=== PATIENT | male | born 1965 | race African-American/Black ===

== ENCOUNTER 2020-12-24 15:21 | Inpatient (IN) | payer SELFPAY ==
[2020-12-24] MEDS ORDERED: MORPHINE 4 MG/ML SYR ONE ×2 (17:18→18:48)
[2020-12-24] MEDS ORDERED: ONDANSETRON 4 MG/2 ML VIAL ONE ×2 (17:18→20:13)
[2020-12-24 17:20] LABS: Absolute Lymphocytes (CBC) 1.1 K/uL (0.7-4.9); Basophils % 0.9 % (0-1.3); Hematocrit 36.3 % (39.6-49.0); Lymphocytes % 10.4 % (15.3-44.8); MPV 8.8 fL (7.6-11.3)
[2020-12-24 17:22] LABS: Protime INR 1.36
[2020-12-24 17:40] LABS: Albumin 3.3 g/dL (3.4-5.0); Bilirubin Direct 0.2 mg/dL (0-0.2); Bilirubin Total 0.9 mg/dL (0.2-1.0); Magnesium 2.5 mg/dL (1.8-2.4); Potassium 3.6 mmol/L (3.5-5.1); Protein, Total 7.1 g/dL (6.4-8.2); Troponin (Emerg Dept Use Only) 0.06 ng/mL (0.0-0.045)
[2020-12-24] MEDS ORDERED: METOPROLOL TAR 25 MG TAB ONE (17:48)
[2020-12-24] MEDS ORDERED: METOPROLOL TARTRATE 5 MG/5 ML INJ IV ONE (18:22)
[2020-12-24] MEDS ORDERED: FUROSEMIDE 40 MG/4 ML VIAL ONE (18:37)
[2020-12-24] MEDS ORDERED: HYDRALAZINE HCL 20 MG/ML VIAL ONE ×2 (18:38→20:13)
--- NOTE | 2020-12-24 19:08 | RAD REPORT ---
EXAM DESCRIPTION: RAD - Chest Single View - 12/24/2020 6:33 pm CLINICAL HISTORY: DYSPNEA Chest pain. COMPARISON: Chest Single View dated 06/24/2017 FINDINGS: Portable technique limits examination quality. Moderate bilateral pulmonary opacities are noted which may represent pulmonary edema or pneumonia. Th e heart is mildly prominent size. Small bilateral pleural effusions suspected.
--- NOTE | 2020-12-24 19:08 | RAD REPORT ---
EXAM DESCRIPTION: CT - Stone Protocol - 12/24/2020 6:37 pm CLINICAL HISTORY: Flank pain. ABD PAIN COMPARISON: <Comparisons> TECHNIQUE: Axial images were obtained without oral or IV contrast. Lack of contrast limits solid org an and vascular assessment. The [id number] spans the entirety of the system partially obscuring uppermost abdomen and lung bases. Coronal reformatted images were obtained and reviewed. All CT scans are performed using dose optimization technique as appropriate and may include automated exposure control or mA/KV adjustment according to patient size. FINDINGS: Mild ground-glass lower lobe lung opacities are present. Small left and small to moderate right pleural effusion. Imaged portions of the liver and spleen show no suspicious findings on non-contrast imaging.32 mm libertad ign-appearing liver cyst. The pancreas and adrenal glands are normal. No pathologic lymphadenopathy i n the abdomen or pelvis. No urinary tract stones or obstructive uropathy. No bowel obstruction, free air, free fluid or abscess. Normal appendix noted.Moderate stool is presen t throughout the colon. Mild lumbar degenerative spondylosis with multilevel posterior disc bulging. IMPRESSION: No urinary tract stones or obstructive uropathy. No acute process identified.
--- NOTE | 2020-12-24 19:35 | EDPHYS ---
Physician Documentation [facility] Name: Houston Dunlap Age: 55 yrs Sex: Male : 1965 Arrival Date: 12/24/2020 Time: 15:24 Bed 23 Private MD: ED Physician Grey Orellana HPI: 12/24 19:23 This 55 yrs old Black Male presents to ER via Ambulatory with complaints of High Blood kb Pressure, Abdominal Pain. 19:23 The patient or guardian reports cough, that is intermittent, described as mild, with no kb sputum, difficulty breathing. Onset: The symptoms/episode began/occurred 2 week(s) ago. Severity of symptoms: At their worst the symptoms were moderate, in the emergency department the symptoms are unchanged. Modifying factors: The symptoms are alleviated by nothing, the symptoms are aggravated by nothing. Associated signs and symptoms: The patient has no apparent associated signs or symptoms. The patient has not experienced similar symptoms in the past. The patient has not recently seen a physician. Pt reports cough, shortness of breath and abd pain that started again on 12/11/20. States this is something that he has been dealing with intermittently since August. Reports swelling to ankles that started this morning. Pt states he is supposed to take lasix, but it makes him urinate too much so he doesn't like to take it like he is supposed to. . Historical: - Allergies: 16:07 No Known Allergies; jl7 - PMHx: 16:07 Hypertensive disorder; Congestive heart failure; jl7 - Immunization history:: Adult Immunizations up to date, Client reports having NOT received the Covid vaccine. - Social history:: Smoking status: Patient denies any tobacco usage or history of. ROS: 19:19 Constitutional: Negative for fever, chills, and weight loss. kb 19:19 Cardiovascular: Positive for edema. 19:19 Respiratory: Positive for cough, shortness of breath, Negative for dyspnea on exertion, hemoptysis, orthopnea, pleurisy, sputum production, wheezing. 19:19 Abdomen/GI: Positive for abdominal pain, Negative for nausea, vomiting, and diarrhea. 19:21 All other systems are negative. kb Exam: 19:06 ECG was reviewed by the Attending Physician. kb 19:21 Constitutional: This is a well developed, well nourished patient who is awake, alert, kb and in no acute distress. Head/Face: Normocephalic, atraumatic. ENT: Moist Mucous membranes Cardiovascular: Regular rate and rhythm with a normal S1 and S2. No gallops, murmurs, or rubs. No pulse deficits. Skin: Warm, dry with normal turgor. Normal color. MS/ Extremity: Pulses equal, no cyanosis. Neurovascular intact. Full, normal range of motion. Neuro: Awake and alert, GCS 15, oriented to person, place, time, and situation. Moves all extremities. Normal gait. Psych: Awake, alert, with orientation to person, place and time. Behavior, mood, and affect are within normal limits. 19:21 Cardiovascular: Edema: pedal edema, that is mild. 19:21 Respiratory: the patient does not display signs of respiratory distress, Respirations: normal, Breath sounds: decreased breath sounds, that are mild, are located in both bases. 19:21 Abdomen/GI: Inspection: abdomen appears normal, Bowel sounds: normal, in all quadrants, Palpation: soft, in all quadrants, moderate abdominal tenderness, in the left upper quadrant and left lower quadrant. Vital Signs: 16:05 BP 187 / 142; Pulse 91; Resp 25; Temp 97.5; Pulse Ox 98% ; Weight 90.26 kg; Height 6 jl7 ft. 1 in. (185.42 cm); Pain 10/10; 16:19 BP 186 / 132; Pulse 104; Resp 26; Pulse Ox 98% on R/A; ld1 16:45 BP 227 / 210; Pulse 138; Resp 24; Pulse Ox 99% on R/A; ld1 17:15 BP 185 / 158; Pulse 94; Resp 20; Pulse Ox 99% on R/A; ld1 17:45 BP 202 / 164; Pulse 97; Resp 21; Pulse Ox 100% ; ld1 18:31 BP 185 / 141; Pulse 80; Resp 19; Pulse Ox 100% ; ld1 19:45 BP 190 / 142; Pulse 86; Resp 18; Pulse Ox 100% on R/A; ld1 20:43 BP 187 / 132; Pulse 89; Resp 19; Pulse Ox 100% on R/A; ld1 16:05 Body Mass Index 26.25 (90.26 kg, 185.42 cm) jl7 MDM: 16:28 Patient medically screened. kb 17:19 Data reviewed: vital signs, nurses notes. Data interpreted: Pulse oximetry: on room air kb is 98 %. Interpretation: normal. ED course: Pt has COVID test result from 09/18/20 from [facility] that is negative. Copy placed in chart. 19:19 Counseling: I had a detailed discussion with the patient and/or guardian regarding: the kb historical points, exam findings, and any diagnostic results supporting the discharge/admit diagnosis, lab results, radiology results, the need for further work-up and treatment in the hospital. Physician consultation: Suraj MCCORMACK was contacted at 19:19, regarding admission, patient's condition, and will see patient in ED, shortly. 12/24 16:46 Order name: Basic Metabolic Panel; Complete Time: 17:42 kb 12/24 16:46 Order name: CBC with Diff; Complete Time: 17:25 kb 12/24 16:46 Order name: LFT's; Complete Time: 17:42 kb 12/24 16:46 Order name: Magnesium; Complete Time: 17:42 kb 12/24 16:46 Order name: NT PRO-BNP; Complete Time: 17:42 kb 12/24 16:46 Order name: PT-INR; Complete Time: 17:36 kb 12/24 16:46 Order name: Troponin (emerg Dept Use Only); Complete Time: 17:42 kb 12/24 16:46 Order name: XRAY Chest (1 view); Complete Time: 19:10 kb 12/24 17:22 Order name: COVID-19 : Document "Date of Symptom Onset" if Symptomatic. kb 12/24 19:55 Order name: Urine Creatinine [facility] 12/24 19:55 Order name: Urine Sodium Random [facility] 12/24 19:55 Order name: UR CREAT EDKS 12/24 20:29 Order name: SARS-COV-2 RT PCR; Complete Time: 20:30 EDKS 12/24 16:46 Order name: EKG; Complete Time: 16:46 kb 12/24 16:46 Order name: Cardiac monitoring; Complete Time: 16:51 kb 12/24 16:46 Order name: EKG - Nurse/Tech; Complete Time: 17:10 kb 12/24 18:06 Order name: CT Stone Protocol; Complete Time: 19:10 kb 12/24 20:03 Order name: CONS Physician Consult EDKS 12/24 16:46 Order name: IV Saline Lock; Complete Time: 17:10 kb 07 16:46 Order name: Labs collected and sent; Complete Time: 17:10 kb 12/24 16:46 Order name: O2 Per Protocol; Complete Time: 16:51 kb 12/24 16:46 Order name: O2 Sat Monitoring; Complete Time: 16:51 kb EC:06 Rate is 99 beats/min. Rhythm is regular. QRS [place] is Normal. QRS interval is normal at kb 94 msec. QT interval is normal at 374 msec. Administered Medications: 17:10 Drug: morphine 4 mg Route: IVP; Site: right antecubital; ld1 17:10 Drug: Zofran (Ondansetron) 4 mg Route: IVP; Site: right antecubital; ld1 17:30 Drug: Lopressor (metoprolol TARTRATE) 50 mg Route: PO; ld1 18:13 Drug: Lopressor (metoprolol) 5 mg Route: IVP; Site: right antecubital; ld1 18:29 Drug: Lasix (furosemide) 40 mg Route: IVP; Site: right antecubital; ld1 18:29 Drug: hydrALAZINE 10 mg Route: IVP; Site: right antecubital; ld1 19:21 CANCELLED (Physician Discretion): Lovenox (enoxaparin) 1 mg/kg Sub-Q once kb 19:30 CANCELLED (Other Intervention Used): hydrALAZINE 20 mg IVP once kb 20:08 Drug: hydrALAZINE 10 mg Route: IVP; Site: right antecubital; ld1 20:08 Drug: HEParin 5000 units Route: Sub-Q; Site: abdomen; ld1 20:09 Drug: Zofran (Ondansetron) 4 mg Route: IVP; Site: right antecubital; ld1 Disposition: 12/25 18:49 Co-signature as Attending Physician, Grey Orellana MD I agree with the assessment and gita plan of care. Disposition Summary: 12/24/20 19:35 Hospitalization Ordered Hospitalization Status: Inpatient Admission kb Provider: Antione Raya Location: Telemetry/MedSurg (Inpatient) kb Condition: Stable kb Problem: new kb Symptoms: are unchanged kb Bed/Room Type: Standard Room Assignment: 214(12/24/20 19:52) mw Diagnosis - Essential (primary) hypertension kb - Unspecified combined systolic (congestive) and diastolic (congestive) heart failure kb - Acute kidney failure, unspecified - acute on chronic kb - Unspecified atrial fibrillation - new onset kb Forms: - Medication Reconciliation Form kb - SBAR form kb Signatures: Dispatcher [employer] EDMS Margaret Underwood, JASON-Leilani GOMEZ-Shannon Wasserman RN RN Grey Ann MD MD cha Leal, Jahala, RN RN jl7 Flakita Bullard RN RN ld1 Corrections: (The following items were deleted from the chart) 12/24 19:21 17:23 CORONAVIRUS ordered. EDMS EDMS 19:10 Lovenox (enoxaparin) 1 mg/kg Sub-Q once ordered. kb kb 19:30 19:30 hydrALAZINE 20 mg IVP once ordered. kb kb 19:52 19:35 kb mw
--- NOTE | 2020-12-24 19:35 | ER ---
Nurse's Notes [facility] Name: Houston Dunlap Age: 55 yrs Sex: Male : 1965 Arrival Date: 12/24/2020 Time: 15:24 Bed 23 Private MD: Diagnosis: Essential (primary) hypertension;Unspecified combined systolic (congestive) and diastolic (congestive) heart failure;Acute kidney failure, unspecified-acute on chronic;Unspecified atrial fibrillation-new onset Presentation: 12/24 16:05 Chief complaint: Patient states: High BP, LLQ abd pain, N/V since last Thursday. [place] jl7 dx with bronchitis, negative COVID and flu. Coronavirus screen: Client denies travel out of the [place] in the last 14 days. At this time, the client does not indicate any symptoms associated with coronavirus-19. Ebola Screen: No symptoms or risks identified at this time. Initial Sepsis Screen: Does the patient meet any 2 criteria? No. Patient's initial sepsis screen is negative. Does the patient have a suspected source of infection? No. Patient's initial sepsis screen is negative. Risk Assessment: Do you want to hurt yourself or someone else? Patient reports no desire to harm self or others. Onset of symptoms was December 19, 2020. Care prior to arrival: None. 16:05 Method Of Arrival: Ambulatory [facility] 16:05 Acuity: FRANCOISE 2 jl7 Historical: - Allergies: 16:07 No Known Allergies; jl7 - PMHx: 16:07 Hypertensive disorder; Congestive heart failure; jl7 - Immunization history:: Adult Immunizations up to date, Client reports having NOT received the Covid vaccine. - Social history:: Smoking status: Patient denies any tobacco usage or history of. Screenin:43 Abuse screen: Denies threats or abuse. Denies injuries from another. Nutritional ld1 screening: No deficits noted. Tuberculosis screening: No symptoms or risk factors identified. Fall Risk None identified. Assessment: 16:23 General: Appears in no apparent distress. comfortable, Behavior is calm, cooperative, ld1 appropriate for age. Pain: Complains of pain in left lower quadrant Pain does not radiate. Pain currently is 9 out of 10 on a pain scale. Quality of pain is described as throbbing, Pain began three weeks ago. Is intermittent. Neuro: Level of Consciousness is awake, alert, obeys commands, Oriented to person, place, time, situation. Cardiovascular: Capillary refill < 3 seconds Patient's skin is warm and dry. Rhythm is regular. Respiratory: Reports cough that is non-productive, Airway is patent Respiratory effort is even, unlabored, Respiratory pattern is regular, symmetrical. GI: Abdomen is flat, non-distended, Bowel sounds present X 4 quads. Abd is soft Abdomen is tender to palpation in left lower quadrant. : No signs and/or symptoms were reported regarding the genitourinary system. EENT: No signs and/or symptoms were reported regarding the EENT system. Derm: No signs and/or symptoms reported regarding the dermatologic system. Musculoskeletal: No signs and/or symptoms reported regarding the musculoskeletal system. 17:45 Reassessment: Patient appears in no apparent distress at this time. Patient and/or ld1 family updated on plan of care and expected duration. Pain level reassessed. 18:31 Reassessment: Patient is alert, oriented x 3, equal unlabored respirations, skin ld1 warm/dry/pink. 18:32 Reassessment: Notified ERP of vital signs and ABD pain. See MAR for orders. ld1 19:30 Reassessment: Patient appears in no apparent distress at this time. Pt reporting ld1 nausea, notified ERP. See MAR for orders. 20:15 Reassessment: Patient appears in no apparent distress at this time. No changes from ld1 previously documented assessment. Patient is alert, oriented x 3, equal unlabored respirations, skin warm/dry/pink. 20:42 Reassessment: Patient appears in no apparent distress at this time. Patient is alert, ld1 oriented x 3, equal unlabored respirations, skin warm/dry/pink. Patient states feeling better. Vital Signs: 16:05 BP 187 / 142; Pulse 91; Resp 25; Temp 97.5; Pulse Ox 98% ; Weight 90.26 kg; Height 6 jl7 ft. 1 in. (185.42 cm); Pain 10/10; 16:19 BP 186 / 132; Pulse 104; Resp 26; Pulse Ox 98% on R/A; ld1 16:45 BP 227 / 210; Pulse 138; Resp 24; Pulse Ox 99% on R/A; ld1 17:15 BP 185 / 158; Pulse 94; Resp 20; Pulse Ox 99% on R/A; ld1 17:45 BP 202 / 164; Pulse 97; Resp 21; Pulse Ox 100% ; ld1 18:31 BP 185 / 141; Pulse 80; Resp 19; Pulse Ox 100% ; ld1 19:45 BP 190 / 142; Pulse 86; Resp 18; Pulse Ox 100% on R/A; ld1 20:43 BP 187 / 132; Pulse 89; Resp 19; Pulse Ox 100% on R/A; ld1 16:05 Body Mass Index 26.25 (90.26 kg, 185.42 cm) jl7 ED Course: 15:24 Patient arrived in ED. rg4 16:07 Triage completed. jl7 16:07 Arm band placed on right wrist. jl7 16:13 Flakita Bullard, NEDA is Primary Nurse. ld1 16:28 Margaret Underwood FNP-C is PHCP. kb 16:28 Grey Orellana MD is Attending Physician. kb 17:00 No provider procedures requiring assistance completed. Inserted saline lock: 20 gauge ld1 in right antecubital area, using aseptic technique. Blood collected. 18:33 XRAY Chest (1 view) In Process Unspecified. EDMS 18:37 CT Stone Protocol In Process Unspecified. EDMS 19:33 Antione Raya DO is Hospitalizing Provider. kb 20:44 Patient has correct armband on for positive identification. Placed in gown. Bed in low ld1 position. Call light in reach. Side rails up X2. gambling monitor on. Pulse ox on. NIBP on. 20:44 Patient admitted, IV remains in place. intact, bleeding controlled, No redness/swelling ld1 at site. Administered Medications: 17:10 Drug: morphine 4 mg Route: IVP; Site: right antecubital; ld1 17:10 Drug: Zofran (Ondansetron) 4 mg Route: IVP; Site: right antecubital; ld1 17:30 Drug: Lopressor (metoprolol TARTRATE) 50 mg Route: PO; ld1 18:13 Drug: Lopressor (metoprolol) 5 mg Route: IVP; Site: right antecubital; ld1 18:29 Drug: Lasix (furosemide) 40 mg Route: IVP; Site: right antecubital; ld1 18:29 Drug: hydrALAZINE 10 mg Route: IVP; Site: right antecubital; ld1 19:21 CANCELLED (Physician Discretion): Lovenox (enoxaparin) 1 mg/kg Sub-Q once kb 19:30 CANCELLED (Other Intervention Used): hydrALAZINE 20 mg IVP once kb 20:08 Drug: hydrALAZINE 10 mg Route: IVP; Site: right antecubital; ld1 20:08 Drug: HEParin 5000 units Route: Sub-Q; Site: abdomen; ld1 20:09 Drug: Zofran (Ondansetron) 4 mg Route: IVP; Site: right antecubital; ld1 Outcome: 19:35 Decision to Hospitalize by Provider. kb 20:44 Admitted to Med/surg accompanied by tech, via wheelchair, room 214, with chart, Report ld1 called to NEDA Felix 20:44 Condition: stable 20:45 Patient left the ED. ld1 Signatures: Dispatcher [employer] EDMS Margaret Underwood, JAVIER GOMEZ-Andria Fuentes rg4 Orlando De La Rosa, RN RN jl7 Flakita Bullard RN RN ld1 Corrections: (The following items were deleted from the chart) 16:08 16:05 BP 187 / 142; Pulse 91bpm; Resp 19bpm; Pulse Ox 98%; Temp 97.5F; 90.26 kg; Height jl7 6 ft. 1 in.; BMI: 26.2; Pain 10/10; jl7
[2020-12-24] MEDS ORDERED: HEPARIN 5000 UNIT/ML 1 ML VIAL ONE (20:13)
[2020-12-24] MEDS ORDERED: ALBUTEROL 2.5 MG/3 ML NEB SOL NEB PRN (20:51)
[2020-12-24] MEDS ORDERED: ONDANSETRON 4 MG/2 ML VIAL IV PRN (20:51)
[2020-12-24] MEDS ORDERED: ACETAMINOPHEN 500 MG TAB PO PRN (20:51)
[2020-12-24] MEDS ORDERED: HYDRALAZINE HCL 20 MG/ML VIAL IV PRN (20:51)
[2020-12-24] MEDS: AMLODIPINE 10 MG TAB PO SCH (21:34)
--- NOTE | 2020-12-24 21:37 | RAD REPORT ---
EXAM DESCRIPTION: US - Renal Ultrasound-Complete - 12/24/2020 9:27 pm CLINICAL HISTORY: renal failure Flank pain COMPARISON: Abdomen Pelvis Scan dated 06/26/2017 FINDINGS: Both kidneys are highly echogenic. The right kidney measures 9.6 x 4.4 x 3.3 cm. No hydronephrosis, focal mass or perinephric fluid. The left kidney measures 9.1 x 4.5 x 3.7 cm. No hydronephrosis, focal mass or perinephric fluid. The urinary bladder is incompletely distended without gross abnormality seen. IMPRESSION: Highly echogenic kidneys bilaterally compatible with medical renal disease.
[2020-12-24 22:00] LABS: Thyroid Stimulating Hormone 1.98 uIU/mL (0.360-3.740); Troponin I 0.04 ng/mL (0.0-0.045)
[2020-12-24 22:34] LABS: Urine Appearance CLEAR (Clear); Urine Bilirubin NEGATIVE (Negative); Urine Blood NEGATIVE (Negative); Urine Color YELLOW (Yellow); Urine Glucose NEGATIVE (Negative); Urine Protein NEGATIVE (Negative); Urine Specific Gravity <=1.005 (1.005-1.030); Urine Urobilinogen 0.2 mg/dL (0.2-1.0)
[2020-12-24 22:42] LABS: UR PROTEIN 23 mg/dL (<11.9)
[2020-12-24 22:48] LABS: UR CREAT < 13.0 mg/dL (20-370)
[2020-12-24 23:05] LABS: Urine Bacteria <20 /HPF (NONE SEEN); Urine RBC <5 /HPF (NONE SEEN)
--- NOTE | 2020-12-25 00:06 | P.HP ---
Certification for Inpatient Patient admitted to: Inpatient With expected LOS: >2 Midnights Patient will require the following post-hospital care: None Practitioner: I am a practitioner with admitting privileges, knowledge of patient current condition, hospital course, and medical plan of care. Services: Services provided to patient in accordance with Admission requirements found in Title 42 Section 412.3 of the Code of Federal Regulations Patient History Date of Service: 12/24/20 Primary Care Provider: Layne Reason for admission: Congestive heart failure History of Present Illness: This is a 55-year-old male with a history of hypertension and congestive heart failure that presented to the emergency room after having what he describes as an intermittent slowly progressive dry cough for past 2 weeks. Paitent stated that he started to get abodminal pain and vomiting today. Patient stated that he has also noticed increased swelling of the lower extremities and dyspnea with exertion. Patient stated that he has not been taking his medications like he is supposed to for the past several months. Patient was evaluated in the emergency room today and was found to have an elevated BNP of 24,000. Patient had slight elevation in troponin at 0.06. Patient's sodium was 138, potassium 3.6, chloride 104, bicarb 25, be you in 62, creatinine 4.27, glucose 107. This has been quite a change compared to previous creatinine in 2018 which was around 2. Patient has a white cell count of 10.7, hemoglobin of 11.3, hematocrit 36.3, platelets 214. Chest x-ray showed volume overload with cardiomegaly. CT the abdomen was unremarkable. Medicine was asked to consult on this case at that time for admission. It was further noted that patient had to have several treatments for his blood pressure while in the emergency room as his diastolic had ranged anywhere from 120-140. He was also found that patient had new onset atrial fibrillation on ECG. Allergies No Known Allergies Allergy (Verified 12/24/20 21:04) Home medications list reviewed: Yes Home Medications: Amlodipine [Norvasc*] 10 mg PO DAILY #30 tab 06/28/17 Furosemide [Lasix*] 40 mg PO BIDL #60 tab 06/28/17 Hydralazine [Apresoline*] 25 mg PO TID #90 tab 06/28/17 Isosorbide Mononitrate [Isosorbide Mononitrate ER] 30 mg PO DAILY #30 tab.er.24h 06/28/17 carvediloL [Coreg*] 12.5 mg PO BID 6AM 6PM #60 tab 06/28/17 cloNIDine HCL [Catapres*] 0.1 mg PO TID #90 tab 06/28/17 Benzonatate [Tessalon Perle*] 1 cap PO Q8HP PRN 12/24/20 levoFLOXacin [Levaquin*] 1 tab PO DAILY 12/24/20 traMADol HCL [Ultram*] 1 tab PO Q6HP PRN 12/24/20 - Past Medical/Surgical History Has patient received pneumonia vaccine in the past: No Diabetic: No -: Hypertension -: CHF -: NONE - Family History Father, Sister, Brother, and Mother -: Heart disease, Kidney disease - Social History Smoking Status: Never smoker Smoking therapy provided: No Alcohol use: Yes CD- Drugs: No Caffeine use: Yes Place of Residence: Home Review of Systems General: Unremarkable Eyes: Unremarkable ENT: Unremarkable Respiratory: Cough, Dry, SOB with Excertion Cardiovascular: Edema Gastrointestinal: Vomiting, Abdominal Pain Musculoskeletal: Unremarkable Integumentary: Unremarkable Neurological: Unremarkable Lymphatics: Unremarkable Physical Examination - Vital Signs Temperature: 97.3 F Blood Pressure: 175/124 Pulse: 77 Respirations: 19 Pulse Ox (%): 100 - Physical Exam General: Alert, In no apparent distress, Oriented x3 HEENT: PERRLA, Mucous membr. moist/pink, EOMI Neck: Supple, 2+ carotid pulse no bruit, JVD not distended, No Thyromegaly Respiratory: Clear to auscultation bilaterally Cardiovascular: Normal pulses, Abnormal S3, No gallops, No rubs, No murmurs, Edema (1+ lower extremities), Irregular heart rate/rhythm Capillary refill: <2 Seconds Gastrointestinal: Normal bowel sounds, Soft and benign, Non-distended, No as cites, No tenderness, No masses, No rebound, No guarding Musculoskeletal: No clubbing, No swelling, No contractures, No erythema, No tenderness, No warmth Integumentary: No rashes, No breakdown, No significant lesion, No tenderness/swelling, No erythema, No warmth, No cyanosis Neurological: Normal gait, Normal speech, Normal strength at 5/5 x4 extr, Normal tone, Sensation intact, Cranial nerves 3-12 intact, Normal affect Lymphatics: No axilla or inguinal lymphadenopathy - Studies Laboratory Data (last 24 hrs) 12/24/20 17:08: PT 15.7 H, INR 1.36 12/24/20 17:08: WBC 10.70, Hgb 11.3 L, Hct 36.3 L, Plt Count 264 12/24/20 17:08: Sodium 138, Potassium 3.6, BUN 62 H, Creatinine 4.27 H, Glucose 107 H, Magnesium 2.5 H, Total Bilirubin 0.9, AST 43 H, ALT 65, Alkaline Phosphatase 71 Assessment and Plan - Problems (Diagnosis) (1) Elevated troponin Current Visit: Yes Status: Acute Plan: Cardiology has been consulted. We will get an echo in the morning and will continue to monitor vital signs an EKG along with serial troponins. (2) Hypertensive urgency Current Visit: Yes Status: Acute Plan: Patient was put on IV hydralazine every 6 hr and will also get amlodipine and carvedilol to begin with. Will continue to monitor blood pressure will bring the blood pressure down slowly (3) Acute kidney injury Onset Date: 06/25/17 Current Visit: No Status: Acute Plan: Nephrology has been consulted. Patient will be on Lasix 80 mg twice a day. We will recheck a CBC and chemistry in the a.m. and will monitor patient's potassium. (4) HTN (hypertension) Current Visit: No Status: Chronic Qualifiers: Hypertension type: primary hypertension Qualified Code(s): I10 - Essential (primary) hypertension (5) Acute diastolic heart failure Current Visit: Yes Status: Acute Plan: Patient will be diuresed and cardiology has been consulted. Echo has been ordered in the morning as well. We will continue to diurese patient (6) Atrial fibrillation Current Visit: Yes Status: Acute Plan: Patient heparinized. We will monitor heart rate for rate control but at this time has not needed intervention. We did start patient back on his carvedilol 12.5 mg twice a day. Cardiology has been consulted. Discharge Plan: Home Plan to discharge in: 48 Hours - Advance Directives Does patient have a Living Will: No Does patient have a Durable POA for Healthcare: No - Code Status/Comfort Care Code Status Assessed: Yes Code Status: Full Code Critical Care: No Time Spent Managing Pts Care (In Minutes): 85
[2020-12-25] MEDS ORDERED: TRAMADOL HCL 50 MG TAB PO PRN (05:56)
--- NOTE | 2020-12-25 05:56 | P.PN ---
Subjective Date of Service: 12/25/20 Primary Care Provider: Layne Chief Complaint: Congestive heart failure Subjective: Other (He admits that he has been without medication for several months. He has no PCP. He has not seen Nephrology Dr. Tillman for some time. Patient willing to be more compliant) Physical Examination - Vital Signs Temperature: 98 F Blood Pressure: 174/113 Pulse: 79 Respirations: 18 Pulse Ox (%): 98 - Studies Laboratory Data (last 24 hrs) 12/24/20 17:08: PT 15.7 H, INR 1.36 12/24/20 17:08: WBC 10.70, Hgb 11.3 L, Hct 36.3 L, Plt Count 264 12/24/20 17:08: Sodium 138, Potassium 3.6, BUN 62 H, Creatinine 4.27 H, Glucose 107 H, Magnesium 2.5 H, Total Bilirubin 0.9, AST 43 H, ALT 65, Alkaline Phosphatase 71 Assessment & Plan Discharge Plan: Home Physician Review Additional Text: CXR: FINDINGS: Portable technique limits examination quality. Moderate bilateral pulmonary opacities are noted which may represent pulmonary edema or pneumonia. The heart is mildly prominent size. Small bilateral pleural effusions suspected. CT scan: FINDINGS: Mild ground-glass lower lobe lung opacities are present. Small left and small to moderate right pleural effusion. Imaged portions of the liver and spleen show no suspicious findings on non- contrast imaging.32 mm benign-appearing liver cyst. The pancreas and adrenal glands are normal. No pathologic lymphadenopathy in the abdomen or pelvis. No urinary tract stones or obstructive uropathy. No bowel obstruction, free air, free fluid or abscess. Normal appendix noted.Moderate stool is present throughout the colon. Mild lumbar degenerative spondylosis with multilevel posterior disc bulging. IMPRESSION: No urinary tract stones or obstructive uropathy. No acute process identified. Renal US: COMPARISON: Abdomen Pelvis Scan dated 06/26/2017 FINDINGS: Both kidneys are highly echogenic. The right kidney measures 9.6 x 4.4 x 3.3 cm. No hydronephrosis, focal mass or perinephric fluid. The left kidney measures 9.1 x 4.5 x 3.7 cm. No hydronephrosis, focal mass or perinephric fluid. The urinary bladder is incompletely distended without gross abnormality seen. IMPRESSION: Highly echogenic kidneys bilaterally compatible with medical renal disease. ECHO June 2017: MEASUREMENTS (cm) DIASTOLIC (NORMALS) SYSTOLIC (NORMALS) IVSd 0.9 (0.6-1.2) LA Diam 4.4 (1.9-4.0) LVEF 23% LVIDd 5.2 (3.5-5.7) LVIDs 4.6 (2.0-3.5) %FS 11% LVPWd 1.0 (0.6-1.2) Ao Diam 2.7 (2.0-3.7) 2 DIMENSIONAL ASSESSMENT: RIGHT ATRIUM: NORMAL LEFT ATRIUM: DILATED RIGHT VENTRICLE: NORMAL LEFT VENTRICLE: NORMAL SIZE TRICUSPID VALVE: NORMAL MITRAL VALVE: NORMAL PULMONIC VALVE: NORMAL AORTIC VALVE: NORMAL PERICARDIAL EFFUSION: NONE AORTIC ROOT: NORMAL LEFT VENTRICULAR WALL MOTION: SEVERE GLOBAL HYPOKINESIS. DOPPLER/COLOR FLOW: TRACE MITRAL AND TRICUSPID REGURGITATION. NORMAL RIGHT VENTRICULAR SYSTOLIC PRESSURE. COMMENTS: TRACE MITRAL AND TRICUSPID REGURGITATION. NORMAL RIGHT VENTRICULAR SYSTOLIC PRESSURE. SEVERE GLOBAL HYPOKINESIS. LEFT VENTRICULAR EJECTION FRACTION 20-25%. LEFT ATRIAL ENLARGEMENT. Physical Exam: General: Alert, In no apparent distress, Oriented x3 HEENT: PERRLA, Mucous membr. moist/pink, EOMI Neck: Supple, 2+ carotid pulse no bruit, JVD not distended, No Thyromegaly Respiratory: Clear anteriorly. Cardiovascular: Regular rate and rhythm no focal deficits. Capillary refill: <2 Seconds Gastrointestinal: Normal bowel sounds, Soft and benign, Non-distended, No ascites, No tenderness, No masses, No rebound, No guarding Musculoskeletal: No clubbing, No swelling, No contractures, No erythema, No tend erness, No warmth Integumentary: No rashes, No breakdown, No significant lesion, No tenderness/swelling, No erythema, No warmth, No cyanosis Neurological: Normal gait, Normal speech, Normal strength at 5/5 x4 extr, Normal tone, Sensation intact, Cranial nerves 3-12 intact, Normal affect Lymphatics: No axilla or inguinal lymphadenopathy Impression: Acute on chronic systolic CHF with noted bilateral small pleural effusions and prior echo June 2017 showing EF of 20 to 25% Acute on chronic renal disease stage IV Hypertensive urgency Atrial fibrillation noncompliance with medication and follow-up Plan: Acute on chronic systolic CHF with noted bilateral small pleural effusions and prior echo June 2017 showing EF of 20 to 25%: Patient has been noncompliant with medication and follow-up. Patient willing to be more compliant. Will obtain echocardiogram. Prior echo in June 2017 showed EF of 20 to 25%. Will decrease IV Lasix to 40 mg twice daily. Continue 1500 cc/day fluid restriction. Will need to get his blood pressures better controlled. Restart prior medications with adjustments made. Continue with Norvasc 10 mg daily, carvedilol 25 mg 1 pill twice daily, clonidine 0.1 mg 1 pill 3 times a day, hydralazine 25 mg 3 times a day and isosorbide 30 mg daily. Cardiology consulted for further recommendation. Will monitor closely. Nephrology consulted to further address his renal condition. Anticipate likely discharge as early as tomorrow. Atrial fibrillation: Patient in sinus rhythm. Continue at higher dose carvedilol 25 mg 1 pill twice daily. Will discuss with cardiology about anticoagulation therapy. Will need to consider his noncompliance in the past. Continue with aspirin 81 mg daily for now. Patient on heparin DVT prophylaxis. Hypertensive urgency: Medications restarted. Medications adjusted. Currently on Norvasc 10 mg daily, carvedilol 25 mg 1 pill twice daily, clonidine 0.1 mg 1 pill 3 times a day and hydralazine 25 mg 3 times a day. Will monitor and adjust medication. Acute on chronic renal disease stage IV: Continue diuresis. Continue to monitor closely. Renal ultrasound shows chronic renal disease. Nephrology consulted. Await further recommendation. Noncompliance with medication and follow-up: Compliance addressed with the patient in detail. Patient willing to be more compliant. Patient plans to take medication. Code status: Full code DVT prophylaxis: Heparin Advanced care planning-30 min: Patient plans to be discharged home at discharge Time Spent Managing Pts Care (In Minutes): 55
[2020-12-25 06:15] LABS: Absolute Lymphocytes (CBC) 1.5 K/uL (0.7-4.9); Basophils % 0.7 % (0-1.3); Hematocrit 33.8 % (39.6-49.0); Lymphocytes % 16.4 % (15.3-44.8); MPV 8.9 fL (7.6-11.3); RBC Red Blood Cell Count 4.48 M/uL (4.33-5.43)
[2020-12-25 06:27] LABS: Potassium 3.2 mmol/L (3.5-5.1)
[2020-12-25] MEDS ORDERED: HEPARIN 5000 UNIT/ML 1 ML VIAL SQ SCH (07:00)
[2020-12-25] MEDS ORDERED: carvediloL 12.5 MG TAB PO SCH ×2 (08:00)
[2020-12-25] MEDS ORDERED: cloNIDine HCL 0.1 MG TAB PO SCH (09:00)
[2020-12-25] MEDS ORDERED: HYDRALAZINE HCL 25 MG TABLET PO SCH (09:00)
[2020-12-25] MEDS ORDERED: FUROSEMIDE 40 MG/4 ML VIAL IV SCH ×3 (09:00→17:00)
[2020-12-25] MEDS: HEPARIN 5000 UNIT/ML 1 ML VIAL SQ SCH ×2 (09:20→20:17)
[2020-12-25] MEDS: AMLODIPINE 10 MG TAB PO SCH (09:21)
[2020-12-25] MEDS: ISOSORBIDE MONO SR 30 MG TAB PO SCH (09:22)
[2020-12-25] MEDS: ASPIRIN EC 81 MG TAB PO SCH (09:22)
[2020-12-25] MEDS ORDERED: POTASSIUM CL SA 10 MEQ TAB PO ONE (10:12)
--- NOTE | 2020-12-25 10:57 | CON ---
Date of Consultation: 12/25/2020 Reason For Consultation: Elevated BUN and creatinine, over volume, fluid management. History Of Present Illness: This is a pleasant 55-year-old black gentleman with significant past med ical history of hypertension, poorly compliant with medication and office visit, hyperlipidemia, platform software engineer xochitl kidney disease, normal-sized kidney, non-nephrotic range of proteinuria, last being evaluated in the office and in the hospital back in 2018. At that time, his creatinine was 2.6 with GFR of 31. A ccording to the patient, the patient had stopped his medication for blood pressure for the last few m onths and start using some herbal medication. According to him, it is black seed. The patient denie d taking any nonsteroidal. No IV contrast. The patient is not taking any diuresis. The patient sta rted complaining of shortness of breath. For that reason, he presented to the hospital. Upon arriva l to the hospital, the patient was found to have elevated BUN, creatinine. Creatinine was up above 4 with GFR down to 18. The patient did not have any hyperkalemia or acidosis. Reviewing the record f rom the previous admission. At that time, the patient had workup for secondary hypertension, include d cortisol which was within normal limit. We send for plasma renin activity and serum aldosterone, w hich was not obtained. At that time, workup for proteinuria including serum protein electrophoresis was negative and his serology was negative. The patient was sent on blood pressure medication. Also workup at that time showed echocardiogram with ejection fraction of 23%. The patient denied any ort hopnea. No chest pain. Upon arrival to the hospital, the patient's blood pressure was above 200 and BNP was above 24,000. Allergies: NO KNOWN DRUGS ALLERGY. Home Medications: According to the patient, he is not taking any blood pressure medication, supposed to be on amlodipine, hydralazine, isosorbide, carvedilol, clonidine, benzonatate, Levaquin. Past Medical History: 1.Hypertension. 2.Congestive heart failure. Ejection fraction back in 2018 of 23%. 3.Chronic kidney disease stage 3B, secondary to hypertension, nephrosclerosis, small size kidney. Family History: Positive for hypertension, CAD, and chronic kidney disease. Social History: Denies smoking. Denied drinking. Denied drugs abuse. Review of Systems: Head and Neck: No red eye. No ear pain. GI: No nausea. No vomiting. : No polyuria. No dysuria. No hematuria. Event Sales Assistant: Not applicable. Respiratory: He has shortness of breath. Cardiovascular: No orthopnea. He has leg swelling. Endocrine: No polydipsia. Skin: No rash. Neurologic: Generalized fatigue. Musculoskeletal: No joint pain. Physical Examination: Vital Signs: When I saw the patient, the patient lying in bed on room air. Vital Signs: Blood pressure 174/113, pulse of 79, afebrile. The patient had good urine output. Chest: Faint crackles, bilateral base. Heart: S1, S2. Systolic murmur. Abdomen: Soft, nontender. Extremities: Trace edema. Neurologic: Alert. No focality. Laboratory Data: WBC 9.4, H and H 11/33.8, platelet of 243. Upon admission, sodium 138, potassium 3 .6, bicarb 25, BUN 62, creatinine 4.2, GFR of 18, calcium 8.8. Today, sodium 140, potassium 3.2, bic arb 25, BUN 55, creatinine 3.7, GFR of 81, calcium 8.3. Previous BNP 15,000, upon admission 24,000. Reviewing the record, PTH 193, cortisol of 20. Serology was negative. Renal ultrasound on this adm ission 9.6/9.1, back in 2018 02/28 with renal cyst. Assessment And Plan: 1.Acute kidney injury on chronic kidney disease secondary to hypertension, nephrosclerosis, over vol ume, mostly progression of the disease/acute kidney injury secondary to uncontrolled blood pressure. Currently, the patient is still on the over volume side. I am going to continue the patient on diur esis and we will monitor the patient. I am going to be avoiding any DEEPA inhibitor or ARB given the a cute kidney injury. 2.Hypertension, not controlled, with acute kidney injury and over volume. The patient will need to repeat the secondary hypertension workup. I am going to go ahead and get aldosterone and plasma cortez n activity. We will follow up. I agree with adding amlodipine, carvedilol, and hydralazine, and we will follow up with Cardiology. I will go ahead and increase his Lasix to 80 mg b.i.d. 3.Hypokalemia secondary to diuresis, but it was even when he arrived to the hospital, possible [place] to rule out secondary hyperaldosteronism. I going to go ahead and replace potassium. We will f ollow up the patient. We will send for plasma renin activity and aldosterone. We will send for magn esium and TSH. 4.Chronic kidney disease with acute kidney injury as above. We will send for PTH, vitamin D, and we will follow up the patient. 5.Congestive heart failure with exacerbation as by Cardiology. Thank you, Dr. Raya, for allowing us to participate in the care of your patient. JONH Voice ID: [id number] Report ID: [id number]
--- NOTE | 2020-12-25 16:11 | EKG ---
Test Date: 2020-12-24 Test Time: 17:00:56 Foreign Languages Professor: TAQUERIA MEASUREMENT RESULTS: Intervals: Rate: 99 MN: QRSD: 94 QT: 374 QTc: 479 Velpen: P: MN: QRS: 59 T: 19 INTERPRETIVE STATEMENTS: Atrial fibrillation with premature ventricular or aberrantly conducted complexes Moderate voltage criteria for LVH, may be normal variant Prolonged QT Abnormal ECG Compared to ECG 06/24/2017 15:52:58 Ventricular premature complex(es) now present Prolonged QT interval now present Sinus tachycardia no longer present Early repolarization no longer present Electronically Signed On 12-25-20 16:08:40 CDT by Adrian Pink
[2020-12-25] MEDS: carvediloL 25 MG TAB PO SCH (17:38)
[2020-12-25] MEDS: HYDRALAZINE HCL 25 MG TABLET PO SCH (20:17)
--- NOTE | 2020-12-26 06:06 | P.DS ---
Admission Date: 12/24/20 Discharge Date: 12/26/20 Primary Care Provider: None; Nephrology- Disposition: ROUTINE DISCHARGE Discharge Condition: GOOD Reason for Admission: Congestive heart failure Consultations: Cardiology-Dr. Pink Nephrology-Dr. Tillman Procedures: COVID: Negative CXR: FINDINGS: Portable technique limits examination quality. Moderate bilateral pulmonary opacities are noted which may represent pulmonary edema or pneumonia. The heart is mildly prominent size. Small bilateral pleural effusions suspected. CT scan: FINDINGS: Mild ground-glass lower lobe lung opacities are present. Small left and small to moderate right pleural effusion. Imaged portions of the liver and spleen show no suspicious findings on non- contrast imaging.32 mm benign-appearing liver cyst. The pancreas and adrenal glands are normal. No pathologic lymphadenopathy in the abdomen or pelvis. No urinary tract stones or obstructive uropathy. No bowel obstruction, free air, free fluid or abscess. Normal appendix noted.Moderate stool is present throughout the colon. Mild lumbar degenerative spondylosis with multilevel posterior disc bulging. IMPRESSION: No urinary tract stones or obstructive uropathy. No acute process identified. Renal US: COMPARISON: Abdomen Pelvis Scan dated 06/26/2017 FINDINGS: Both kidneys are highly echogenic. The right kidney measures 9.6 x 4.4 x 3.3 cm. No hydronephrosis, focal mass or perinephric fluid. The left kidney measures 9.1 x 4.5 x 3.7 cm. No hydronephrosis, focal mass or perinephric fluid. The urinary bladder is incompletely distended without gross abnormality seen. IMPRESSION: Highly echogenic kidneys bilaterally compatible with medical renal disease. ECHO June 2017: MEASUREMENTS (cm) DIASTOLIC (NORMALS) SYSTOLIC (NORMALS) IVSd 0.9 (0.6-1.2) LA Diam 4.4 (1.9-4.0) LVEF 23% LVIDd 5.2 (3.5-5.7) LVIDs 4.6 (2.0-3.5) %FS 11% LVPWd 1.0 (0.6-1.2) Ao Diam 2.7 (2.0-3.7) 2 DIMENSIONAL ASSESSMENT: RIGHT ATRIUM: NORMAL LEFT ATRIUM: DILATED RIGHT VENTRICLE: NORMAL LEFT VENTRICLE: NORMAL SIZE TRICUSPID VALVE: NORMAL MITRAL VALVE: NORMAL PULMONIC VALVE: NORMAL AORTIC VALVE: NORMAL PERICARDIAL EFFUSION: NONE AORTIC ROOT: NORMAL LEFT VENTRICULAR WALL MOTION: SEVERE GLOBAL HYPOKINESIS. DOPPLER/COLOR FLOW: TRACE MITRAL AND TRICUSPID REGURGITATION. NORMAL RIGHT VENTRICULAR SYSTOLIC PRESSURE. COMMENTS: TRACE MITRAL AND TRICUSPID REGURGITATION. NORMAL RIGHT VENTRICULAR SYSTOLIC PRESSURE. SEVERE GLOBAL HYPOKINESIS. LEFT VENTRICULAR EJECTION FRACTION 20-25%. LEFT ATRIAL ENLARGEMENT. ECHO, Current: MEASUREMENTS (cm) DIASTOLIC (NORMALS) SYSTOLIC (NORMALS) IVSd 1.3 (0.6-1.2) LA Diam 4.0 (1.9-4.0) LVEF 35-40% LVIDd 4.9 (3.5-5.7) LVIDs 4.2 (2.0-3.5) %FS 16% LVPWd 1.3 (0.6-1.2) Ao Diam 2.5 (2.0-3.7) 2 DIMENSIONAL ASSESSMENT: RIGHT ATRIUM: NORMAL LEFT ATRIUM: NORMAL RIGHT VENTRICLE: NORMAL LEFT VENTRICLE: LEFT VENTRICULAR HYPERTROPHY TRICUSPID VALVE: NORMAL MITRAL VALVE: NORMAL PULMONIC VALVE: NORMAL AORTIC VALVE: NORMAL PERICARDIAL EFFUSION: NONE AORTIC ROOT: NORMAL LEFT VENTRICULAR WALL MOTION: MODERATE GLOBAL HYPOKINESIS. DOPPLER/COLOR FLOW: MILD MITRAL AND TRICUSPID REGURGITATION NORMAL RIGHT VENTRICULAR SYSTOLIC PRESSURE. COMMENTS: MODERATE GLOBAL HYPOKINESIS EJECTION FRACTION 35-40%. MILD MITRAL AND TRICUSPID REGURGITATION NORMAL RIGHT VENTRICULAR SYSTOLIC PRESSURE Follow up CXR: COMPARISON: None. TECHNIQUE: PA and lateral views of the chest were obtained. FINDINGS: Improved aeration of the lungs bilaterally. No focal consolidation or edema is identified. The heart size is less prominent. No fractures are identified. IMPRESSION: Improved aeration of the lungs likely representing resolving edema. Medical problem list: Acute on chronic systolic CHF with noted bilateral small pleural effusions and prior echo June 2017 showing EF of 20 to 25% now ejection fraction around 35 to 40% Acute on chronic renal disease stage IV Hypertensive urgency Atrial fibrillation, now NSR likely paroxysmal Noncompliance with medication and follow-up Brief History of Present Illness: 85-year-old -[place] male with a history of hypertension and congestive heart failure that presented to the emergency room after having what he describes as an intermittent slowly progressive dry cough for past 2 weeks. Patient also reported some shortness of breath. Patient stated that he has not been taking his medications like he is supposed to for the past several months. Patient was evaluated in the emergency room today and was found to have an elevated BNP of 24,000. Patient had slight elevation in troponin at 0.06. Patient's sodium was 138, potassium 3.6, chloride 104, bicarb 25, be you in 62, creatinine 4.27, glucose 107. This has been quite a change compared to previous creatinine in 2018 which was around 2. Patient has a white cell count of 10.7, h emoglobin of 11.3, hematocrit 36.3, platelets 214. Chest x-ray showed volume overload with cardiomegaly. CT the abdomen was unremarkable. Patient was admitted for further evaluation and treatment. Hospital Course: Patient presented with shortness of breath secondary to acute on chronic systolic CHF with bilateral small pleural effusions noted. Patient with prior echo done June 2017 showing ejection fraction around 20 to 25%. Patient was admitted for treatment. Patient also presented with hypertensive urgency and episode of atrial fibrillation which resolved with medication. Patient has been noncompliant with medication and follow-up. Patient was admitted for treatment. Patient was seen and evaluated by nephrology and cardiology. Repeat echocardiogram shows improvement of ejection fraction to 35 to 40 %. Patient was given IV Lasix with improvement. Chest x-ray shows improvement. Patient not requiring any oxygen. Patient back to normal sinus rhythm. Cardiology recommends no chronic anticoagulation therapy. A. fib likely paroxysmal. Cardiology recommends no further cardiac intervention at this time. Blood pressure medications were adjusted for better control. At discharge patient will continue with the 1500 cc/day fluid restriction and low-salt diet. He is to monitor his weight daily. If his weight increases by more than 5 pounds he is to contact his PCP for further adjustment in medication. At discharge patient will continue with Lasix 40 mg 1 pill twice daily. The patient will also continue with Imdur 30 mg daily and aspirin 81 mg daily. Patient is not a candidate for Entresto at this time as recommended by cardiology. Patient will need to follow-up with cardiology in 1 to 2 weeks to follow-up hospitalization. Patient plans to establish care with a local PCP to monitor his chronic conditions. For his hypertension, medications were adjusted for better control. Blood pressure is now improved. At discharge, the patient will continue with Norvasc 10 mg daily, carvedilol 25 mg 1 pill twice daily, clonidine 0.1 mg 1 pill twice daily, and hydralazine 25 mg 1 pill twice daily. Recommend to monitor his blood pressures daily. Recommend to maintain blood pressure less than 130/80. If his blood pressures remain elevated greater than 140/90 he is to contact his PCP for further recommendation. Recommend follow-up with cardiology in 1 to 2 weeks to follow-up his hospitalization. Patient plans to establish care with a local physician to continue his medical regimen and close monitoring of his condition. Education on CHF, hypertension provided. Patient with acute on chronic renal disease stage IV. Patient was seen by nephrology. Recommend no further use of nonsteroidal anti-inflammatories. Future medications would to be renally dosed. Renal function overall stable. At discharge patient will follow up with nephrology in 1 to 2 weeks. Recommend to recheck labBMP in 1 to 2 weeks to monitor his progress. Patient with history of noncompliance with his medication and follow-up. Patient plans to be more compliant. Patient will establish care with a local PCP to continue his care. Vital Signs/Physical Exam: Temp Pulse Resp BP Pulse Ox 98.1 F 79 18 136/90 98 12/26/20 04:00 12/26/20 04:00 12/26/20 04:00 12/26/20 04:00 12/26/20 04:00 General: Alert, In no apparent distress, Oriented x3, Cooperative HEENT: Atraumatic Neck: Supple Respiratory: Clear to auscultation bilaterally, Normal air movement Cardiovascular: Normal pulses, Regular rate/rhythm Gastrointestinal: Normal bowel sounds, No tenderness, No masses, No rebound, No guarding Musculoskeletal: No tenderness Integumentary: No tenderness/swelling Neurological: Normal speech, Normal strength at 5/5 x4 extr, Normal tone, Normal affect Laboratory Data at Discharge: WBC 9.40 K/uL (4.3-10.9) 12/25/20 05:45 Hgb 11.0 g/dL (13.6-17.9) L 12/25/20 05:45 Hct 33.8 % (39.6-49.0) L 12/25/20 05:45 Plt Count 243 K/uL (152-406) 12/25/20 05:45 PT 15.7 SECONDS (9.5-12.5) H 12/24/20 17:08 INR 1.36 12/24/20 17:08 Sodium 140 mmol/L (136-145) 12/25/20 05:45 Potassium 3.2 mmol/L (3.5-5.1) L 12/25/20 05:45 BUN 55 mg/dL (7-18) H 12/25/20 05:45 Creatinine 3.73 mg/dL (0.55-1.3) H 12/25/20 05:45 Glucose 98 mg/dL (74-106) 12/25/20 05:45 Magnesium 2.5 mg/dL (1.8-2.4) H 12/24/20 17:08 Total Bilirubin 0.9 mg/dL (0.2-1.0) 12/24/20 17:08 AST 43 U/L (15-37) H 12/24/20 17:08 ALT 65 U/L (12-78) 12/24/20 17:08 Alkaline Phosphatase 71 U/L (45-117) 12/24/20 17:08 Troponin I 0.05 ng/mL (0.0-0.045) H 12/25/20 00:51 Home Medications: traMADol HCL [Ultram*] 1 tab PO Q6HP PRN 12/24/20 Amlodipine [Norvasc*] 10 mg PO DAILY #30 tab 12/26/20 Aspirin [Aspirin EC 81 MG] 81 mg PO DAILY #90 tablet. 12/26/20 Furosemide [Lasix*] 40 mg PO BIDL #60 tab 12/26/20 Hydralazine [Apresoline*] 25 mg PO BID #60 tab 12/26/20 Isosorbide Mononitrate [Isosorbide Mononitrate ER] 30 mg PO DAILY #30 tab.er.24h 12/26/20 carvediloL [Coreg*] 25 mg PO BIDWM #60 tab 12/26/20 cloNIDine HCL [Catapres*] 0.1 mg PO BID #60 tab 12/26/20 New Medications: Hydralazine [Apresoline*] 25 mg PO BID #60 tab Aspirin [Aspirin EC 81 MG] 81 mg PO DAILY #90 tablet. cloNIDine HCL [Catapres*] 0.1 mg PO BID #60 tab carvediloL [Coreg*] 25 mg PO BIDWM #60 tab Isosorbide Mononitrate [Isosorbide Mononitrate ER] 30 mg PO DAILY #30 tab.er.24h Furosemide [Lasix*] 40 mg PO BIDL #60 tab Amlodipine [Norvasc*] 10 mg PO DAILY #30 tab Physician Discharge Instructions: Patient presented with shortness of breath secondary to acute on chronic systolic CHF with bilateral small pleural effusions noted. Patient with prior echo done June 2017 showing ejection fraction around 20 to 25%. Patient was admitted for treatment. Patient also presented with hypertensive urgency and episode of atrial fibrillation which resolved with medication. Patient has been noncompliant with medication and follow-up. Patient was admitted for treatment. Patient was seen and evaluated by nephrology and cardiology. Repeat echocardiogram shows improvement of ejection fraction to 35 to 40 %. Patient was given IV Lasix with improvement. Chest x-ray shows improvement. Patient not requiring any oxygen. Patient back to normal sinus rhythm. Cardiology recommends no chronic anticoagulation therapy. A. fib likely paroxysmal. Cardiology recommends no further cardiac intervention at this time. Blood pressure medications were adjusted for better control. At discharge patient will continue with the 1500 cc/day fluid restriction and low-salt diet. He is to monitor his weight daily. If his weight increases by more than 5 pounds he is to contact his PCP for further adjustment in medication. At discharge patient will continue with Lasix 40 mg 1 pill twice daily. The patient will also continue with Imdur 30 mg daily and aspirin 81 mg daily. Patient is not a candidate for Entresto at this time as recommended by cardiology. Patient will need to follow-up with cardiology in 1 to 2 weeks to follow-up hospitalization. Patient plans to establish care with a local PCP to monitor his chronic conditions. For his hypertension, medications were adjusted for better control. Blood pressure is now improved. At discharge, the patient will continue with Norvasc 10 mg daily, carvedilol 25 mg 1 pill twice daily, clonidine 0.1 mg 1 pill twice daily, and hydralazine 25 mg 1 pill twice daily. Recommend to monitor his blood pressures daily. Recommend to maintain blood pressure less than 130/80. If his blood pressures remain elevated greater than 140/90 he is to contact his PCP for further recommendation. Recommend follow-up with cardiology in 1 to 2 weeks to follow-up his hospitalization. Patient plans to establish care with a local physician to continue his medical regimen and close monitoring of his condition. Education on CHF, hypertension provided. Patient with acute on chronic renal disease stage IV. Patient was seen by nephrology. Recommend no further use of nonsteroidal anti-inflammatories. Future medications would to be renally dosed. Renal function overall stable. At discharge patient will follow up with nephrology in 1 to 2 weeks. Recommend to recheck labBMP in 1 to 2 weeks to monitor his progress. Patient with history of noncompliance with his medication and follow-up. Patient plans to be more compliant. Patient will establish care with a local PCP to continue his care. Diet: AHA Activity: Ad semaj Followup: NONE,NONE [Primary Care Provider] - Time spent managing pt's care (in minutes): 55
[2020-12-26 06:46] LABS: Albumin 3.3 g/dL (3.4-5.0); Magnesium 2.3 mg/dL (1.8-2.4); Phosphorus 4.1 mg/dL (2.5-4.9); Potassium 3.2 mmol/L (3.5-5.1); Thyroid Stimulating Hormone 1.01 uIU/mL (0.360-3.740); Uric Acid 9.9 mg/dL (3.5-7.2)
--- NOTE | 2020-12-26 07:55 | P.PN ---
Subjective Date of Service: 12/26/20 Primary Care Provider: None; Nephrology- Chief Complaint: Congestive heart failure Subjective: Other (No c/o SOB) Physical Examination - Vital Signs Temperature: 98.1 F Blood Pressure: 136/90 Pulse: 79 Respirations: 18 Pulse Ox (%): 98 - Physical Exam General: Alert, In no apparent distress HEENT: Atraumatic, Normocephalic Neck: Supple Respiratory: Clear to auscultation bilaterally Cardiovascular: No rubs, No murmurs Gastrointestinal: Soft and benign Musculoskeletal: No swelling Integumentary: No warmth Neurological: Normal speech, Normal tone Lymphatics: No axilla or inguinal lymphadenopathy Urinary: Other (No santillan) External genitalia: Deferred Rectal: Deferred Assessment And Plan - Plan # HARISH 2/2 uncontrolled Htn SCr trending up, lasix held today Advised on liberal po fluid intake. Do not restrict po fluid unless he develops hyponatremia Avoid NSAID, ACEI ARB Monitor renal panel # CKD presumed to be 2/2 hypertensive nephrosclerosis F/u iPTH, 25OHD Monitor renal panel # Acute on chronic CHF Mngt per Cardiology # Htn BP overall still above goal F/u PA/PRA Hydalazine increased further to 75 mg po bid Other BP meds continue same dose He has hypokalemia & alkalosis, looks like these are chronic issues. 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 Await PA/PRA result. May also benefit from jemima po bid trial then back off on other po BP meds for ? Conn's, even though his GFR is only 19-20. # Hypokalemia KCl repletion ordered today # Dispo Anticipate dc tomorrow
[2020-12-26] MEDS: carvediloL 25 MG TAB PO SCH ×2 (08:03→16:54)
[2020-12-26] MEDS: HYDRALAZINE HCL 25 MG TABLET PO SCH ×2 (08:03→20:35)
[2020-12-26] MEDS: HEPARIN 5000 UNIT/ML 1 ML VIAL SQ SCH ×2 (08:03→20:36)
[2020-12-26] MEDS: ISOSORBIDE MONO SR 30 MG TAB PO SCH (08:03)
[2020-12-26] MEDS: ASPIRIN EC 81 MG TAB PO SCH (08:03)
--- NOTE | 2020-12-26 08:03 | RAD REPORT ---
EXAM DESCRIPTION: RAD - Chest Pa And Lat (2 Views) - 12/26/2020 5:40 am CLINICAL HISTORY: 12/24/2020 COMPARISON: None. TECHNIQUE: PA and lateral views of the chest were obtained. FINDINGS: Improved aeration of the lungs bilaterally. No focal consolidation or edema is identified. The heart size is less prominent. No fractures are identified. IMPRESSION: Improved aeration of the lungs likely representing resolving edema.
[2020-12-26] MEDS: AMLODIPINE 10 MG TAB PO SCH (08:05)
--- NOTE | 2020-12-26 08:23 | ECHO ---
HEIGHT: 6 ft 1 in WEIGHT: 189 lb 0 oz DATE OF STUDY: 12/25/[address]: Nas Cuevas 2-DIMENSIONAL: YES M.MODE: YES DOPPLER: YES COLOR FLOW: YES TDS: NO PORTABLE: NO DEFINITY: NO BUBBLE STUDY: NO DIAGNOSIS: HEART FAILURE CARDIAC HISTORY: CATHERIZATION: SURGERY: PROSTHETIC VALVE: PACEMAKER: MEASUREMENTS (cm) DIASTOLIC (NORMALS) SYSTOLIC (NORMALS) IVSd 1.3 (0.6-1.2) LA Diam 4.0 (1.9-4.0) LVEF 35-40% LVIDd 4.9 (3.5-5.7) LVIDs 4.2 (2.0-3.5) %FS 16% LVPWd 1.3 (0.6-1.2) Ao Diam 2.5 (2.0-3.7) 2 DIMENSIONAL ASSESSMENT: RIGHT ATRIUM: NORMAL LEFT ATRIUM: NORMAL RIGHT VENTRICLE: NORMAL LEFT VENTRICLE: LEFT VENTRICULAR HYPERTROPHY TRICUSPID VALVE: NORMAL MITRAL VALVE: NORMAL PULMONIC VALVE: NORMAL AORTIC VALVE: NORMAL PERICARDIAL EFFUSION: NONE AORTIC ROOT: NORMAL LEFT VENTRICULAR WALL MOTION: MODERATE GLOBAL HYPOKINESIS. DOPPLER/COLOR FLOW: MILD MITRAL AND TRICUSPID REGURGITATION - NORMAL RIGHT VENTRICULAR SYSTOLIC PRESSURE. COMMENTS: MODERATE GLOBAL HYPOKINESIS - EJECTION FRACTION 35-40%. MILD MITRAL AND TRICUSPID REGURGITATION - NORMAL RIGHT VENTRICULAR SYSTOLIC PRESSURE. TECHNOLOGIST: CHIN CAAL
[2020-12-26] MEDS ORDERED: FUROSEMIDE 40 MG TABLET PO SCH (09:00)
[2020-12-26] MEDS ORDERED: cloNIDine HCL 0.1 MG TAB PO SCH (09:42)
[2020-12-26] MEDS ORDERED: POTASSIUM CL SA 10 MEQ TAB PO ONE (13:29)
[2020-12-26 21:50] VITALS: BMI 24.9
--- NOTE | 2020-12-27 04:16 | CON ---
Date of Consultation: 12/25/2020 The patient was admitted on 12/24/[address] Raya service. I saw the patient on 12/25/2020. Reason For Consultation: Congestive heart failure. History Of Present Illness: Mr. Dunlap is a 55-year-old black male with history of hypertension, cecilia estive heart failure. He came in with hypertension, mid-epigastric pain, dyspnea on exertion. No na usea, vomiting, diaphoresis, PND, orthopnea, pedal edema, palpitations, or syncope. Has had symptoms dating back to August. He also reported some pedal edema. He is supposed to be on Lasix at home. Naa wilson has been rather very compliant with his medication. He came in with a blood pressure of 187/142, o xygen saturation was 98%. He was breathing at 25 times a minute. He was afebrile. He denied any fe destinee or chills or cough. He denied any diarrhea. Past Medical History: As stated above. He is alert. Allergies: NONE. Review of Systems: Negative. Social History: Negative. Family History: Noncontributory. Medications: At home are supposed to be Norvasc 10 mg daily, aspirin, Lasix 40 mg b.i.d., hydralazin e, Imdur, carvedilol 25 mg b.i.d., and tramadol. Physical Examination: Vital signs: He weighed 191 pounds. Blood pressure initially was 174/113 and when I saw him was 125 /88. Other vital signs were stable. He was in sinus rhythm with PACs. HEENT: Negative. Neck: Supple with no bruit. Chest: Reveals some rales both bases. Cardiac: Revealed a regular rhythm and rate with an S4 gallops. Abdomen: Benign. Extremities: Revealed no clubbing, cyanosis, but he had 2+ edema to the knee. Skin: Dry and intact. Pulses are present distally bilaterally. Neurologic: He was nonfocal. Diagnostic Data: Showed a creatinine of 3.73. His potassium was 3.2. His troponin was 0.05. His B [employer] was 15,431. Chest x-ray showed pulmonary edema and small bilateral pleural effusion. EKG showed atrial fibrillation with ventricular response of 99. Impression And Plan: 1.Acute on chronic systolic congestive heart failure. 2.Acute renal failure. 3.Hypertension, very poorly controlled. 4.Atrial fibrillation may be new onset. The patient needs to be on anticoagulation. Nephrology has been consulted. He needs to have a 2D echocardiogram. We need to diurese him very gently, more wor ried that he may go into renal failure including aggressively. Renal ultrasound should b e obtained and I will leave that up to Dr. Tillman. I agree with his present regimen for now. I wi ll continue to follow him. RUSS/VIRGILIO Voice ID: [id number] Report ID: [id number]
--- NOTE | 2020-12-27 04:41 | PN ---
Date of Progress Note: 12/26/2020 Subjective: Mr. Dunlap came in with hypertensive crisis, congestive heart failure, noncompliance, and acute kidney injury. He was seen by Nephrology. Renal ultrasound showed medical renal disease. Ec hocardiogram showed an ejection fraction of 35% to 40%. Mr. Dunlap is feeling better. His blood pres sure is better. He has lost 2 pounds since admission. O2 saturation 97% on room air. Creatinine is still pending. Final Impression And Plan: Acute on chronic systolic congestive heart failure; acute renal failure; hypertension, poorly controlled; and atrial fibrillation, new onset. I think the patient should go h ome on his medications at home plus clonidine. He is on carvedilol, isosorbide, hydralazine, amlodip ine, and Lasix. I think he should have an anticoagulant as well, preferably Eliquis 2.5 mg b.i.d. H steve needs to be followed up in my office in the very near future to follow up on his atrial fibrillatio n and congestive heart failure. RUSS/VIRGILIO Voice ID: [id number] Report ID: [id number]
[2020-12-27 05:44] LABS: Albumin 2.9 g/dL (3.4-5.0); Magnesium 2.3 mg/dL (1.8-2.4); Phosphorus 4.1 mg/dL (2.5-4.9); Potassium 3.6 mmol/L (3.5-5.1)
--- NOTE | 2020-12-27 06:02 | P.DS ---
Admission Date: 12/24/20 Discharge Date: 12/27/20 Primary Care Provider: None; Nephrology- Disposition: ROUTINE DISCHARGE Discharge Condition: GOOD Reason for Admission: Congestive heart failure Consultations: Nephrology-Dr. Tillman Cardiology-Dr. Pink Procedures: COVID: Negative CXR: FINDINGS: Portable technique limits examination quality. Moderate bilateral pulmonary opacities are noted which may represent pulmonary edema or pneumonia. The heart is mildly prominent size. Small bilateral pleural effusions suspected. CT scan: FINDINGS: Mild ground-glass lower lobe lung opacities are present. Small left and small to moderate right pleural effusion. Imaged portions of the liver and spleen show no suspicious findings on non- contrast imaging.32 mm benign-appearing liver cyst. The pancreas and adrenal glands are normal. No pathologic lymphadenopathy in the abdomen or pelvis. No urinary tract stones or obstructive uropathy. No bowel obstruction, free air, free fluid or abscess. Normal appendix noted.Moderate stool is present throughout the colon. Mild lumbar degenerative spondylosis with multilevel posterior disc bulging. IMPRESSION: No urinary tract stones or obstructive uropathy. No acute process identified. Renal US: COMPARISON: Abdomen Pelvis Scan dated 06/26/2017 FINDINGS: Both kidneys are highly echogenic. The right kidney measures 9.6 x 4.4 x 3.3 cm. No hydronephrosis, focal mass or perinephric fluid. The left kidney measures 9.1 x 4.5 x 3.7 cm. No hydronephrosis, focal mass or perinephric fluid. The urinary bladder is incompletely distended without gross abnormality seen. IMPRESSION: Highly echogenic kidneys bilaterally compatible with medical renal disease. ECHO June 2017: MEASUREMENTS (cm) DIASTOLIC (NORMALS) SYSTOLIC (NORMALS) IVSd 0.9 (0.6-1.2) LA Diam 4.4 (1.9-4.0) LVEF 23% LVIDd 5.2 (3.5-5.7) LVIDs 4.6 (2.0-3.5) %FS 11% LVPWd 1.0 (0.6-1.2) Ao Diam 2.7 (2.0-3.7) 2 DIMENSIONAL ASSESSMENT: RIGHT ATRIUM: NORMAL LEFT ATRIUM: DILATED RIGHT VENTRICLE: NORMAL LEFT VENTRICLE: NORMAL SIZE TRICUSPID VALVE: NORMAL MITRAL VALVE: NORMAL PULMONIC VALVE: NORMAL AORTIC VALVE: NORMAL PERICARDIAL EFFUSION: NONE AORTIC ROOT: NORMAL LEFT VENTRICULAR WALL MOTION: SEVERE GLOBAL HYPOKINESIS. DOPPLER/COLOR FLOW: TRACE MITRAL AND TRICUSPID REGURGITATION. NORMAL RIGHT VENTRICULAR SYSTOLIC PRESSURE. COMMENTS: TRACE MITRAL AND TRICUSPID REGURGITATION. NORMAL RIGHT VENTRICULAR SYSTOLIC PRESSURE. SEVERE GLOBAL HYPOKINESIS. LEFT VENTRICULAR EJECTION FRACTION 20-25%. LEFT ATRIAL ENLARGEMENT. ECHO, Current: MEASUREMENTS (cm) DIASTOLIC (NORMALS) SYSTOLIC (NORMALS) IVSd 1.3 (0.6-1.2) LA Diam 4.0 (1.9-4.0) LVEF 35-40% LVIDd 4.9 (3.5-5.7) LVIDs 4.2 (2.0-3.5) %FS 16% LVPWd 1.3 (0.6-1.2) Ao Diam 2.5 (2.0-3.7) 2 DIMENSIONAL ASSESSMENT: RIGHT ATRIUM: NORMAL LEFT ATRIUM: NORMAL RIGHT VENTRICLE: NORMAL LEFT VENTRICLE: LEFT VENTRICULAR HYPERTROPHY TRICUSPID VALVE: NORMAL MITRAL VALVE: NORMAL PULMONIC VALVE: NORMAL AORTIC VALVE: NORMAL PERICARDIAL EFFUSION: NONE AORTIC ROOT: NORMAL LEFT VENTRICULAR WALL MOTION: MODERATE GLOBAL HYPOKINESIS. DOPPLER/COLOR FLOW: MILD MITRAL AND TRICUSPID REGURGITATION NORMAL RIGHT VENTRICULAR SYSTOLIC PRESSURE. COMMENTS: MODERATE GLOBAL HYPOKINESIS EJECTION FRACTION 35-40%. MILD MITRAL AND TRICUSPID REGURGITATION NORMAL RIGHT VENTRICULAR SYSTOLIC PRESSURE Follow up CXR: COMPARISON: None. TECHNIQUE: PA and lateral views of the chest were obtained. FINDINGS: Improved aeration of the lungs bilaterally. No focal consolidation or edema is identified. The heart size is less prominent. No fractures are identified. IMPRESSION: Improved aeration of the lungs likely representing resolving edema. Medical problem list: Acute on chronic systolic CHF with noted bilateral small pleural effusions and prior echo June 2017 showing EF of 20 to 25% now ejection fraction around 35 to 40% Acute on chronic renal disease stage IV with presumed hypertensive nephrosclerosis and possible primary hypoaldosteronism Hypertensive urgency Atrial fibrillation, now NSR likely paroxysmal Noncompliance with medication and follow-up Brief History of Present Illness: 85-year-old -[place] male with a history of hypertension and congestive heart failure that presented to the emergency room after having what he describes as an intermittent slowly progressive dry cough for past 2 weeks. Patient also reported some shortness of breath. Patient stated that he has not been taking his medications like he is supposed to for the past several months. Patient was evaluated in the emergency room today and was found to have an elevated BNP of 24,000. Patient had slight elevation in troponin at 0.06. Patient's sodium was 138, potassium 3.6, chloride 104, bicarb 25, be you in 62, creatinine 4.27, glucose 107. This has been quite a change compared to previous creatinine in 2018 which was around 2. Patient has a white cell count of 10.7, hemoglobin of 11.3, hematocrit 36.3, platelets 214. Chest x-ray showed volume overload with cardiomegaly. CT the abdomen was unremarkable. Patient was admitted for further evaluation and treatment. Hospital Course: Patient presented with shortness of breath secondary to acute on chronic systolic CHF with bilateral small pleural effusions noted. Patient with prior echo done June 2017 showing ejection fraction around 20 to 25%. Patient was admitted for treatment. Patient also presented with hypertensive urgency and episode of atrial fibrillation which resolved with medication. Patient has been noncompliant with medication and follow-up. Patient was admitted for treatment. Patient was seen and evaluated by nephrology and cardiology. Repeat echocardiogram shows improvement of ejection fraction to 35 to 40 %. Patient was given IV Lasix with improvement. Chest x-ray shows improvement. Patient not requiring any oxygen. Patient back to normal sinus rhythm. Cardiology recommends no chronic anticoagulation therapy. A. fib likely paroxysmal. Cardiology recommends no further cardiac intervention at this time. Blood pressure medications were adjusted for better control. At discharge patient will continue with renal diet. He is to monitor his weight daily. If his weight increases by more than 5 pounds he is to contact his PCP or nephrology for further adjustment in medication. At discharge patient will continue with Imdur 30 mg daily. Patient is not a candidate for Entresto at this time as recommended by cardiology. Patient will need to follow-up with cardiology in 1 to 2 weeks to follow-up hospitalization. Patient plans to establish care with a local PCP to monitor his chronic conditions. For his hypertension, medications were adjusted for better control. Blood pressure is now improved. At discharge, the patient will continue with Norvasc 10 mg daily, carvedilol 25 mg 1 pill twice daily, and hydralazine 75 mg 1 pill twice daily. Recommend to monitor his blood pressures daily. Recommend to maintain blood pressure less than 130/80. If his blood pressures remain elevated greater than 140/90 he is to contact his PCP for further recommendation. Recommend follow-up with cardiology in 1 to 2 weeks to follow- up his hospitalization. Patient plans to establish care with a local physician to continue his medical regimen and close monitoring of his condition. Education on CHF, hypertension provided. Patient with acute on chronic renal disease stage IV with presumed hypertensive nephrosclerosis. Patient being evaluated for primary hyperaldosteronism. Lab pending. This can be followed up with nephrology as an outpatient. Patient was seen by nephrology. Recommend no further use of nonsteroidal anti- inflammatories. Future medications would to be renally dosed. Renal function overall stable. At discharge patient will follow up with nephrology in 1 to 2 weeks. Recommend to recheck labBMP in 1 to 2 weeks to monitor his progress. Patient had episode of atrial fibrillation. This appeared new. Cardiology recommends to start chronic anticoagulation therapy Eliquis 2.5 mg 1 pill twice daily. Patient will continue with this medication. Patient currently on carvedilol to help with rate control. Recommend follow-up with cardiology in 1 to 2 weeks. Education on atrial fibrillation, chronic anticoagulation therapy will be provided. Patient with history of noncompliance with his medication and follow-up. Patient plans to be more compliant. Patient will establish care with a local PCP to continue his care. Vital Signs/Physical Exam: Temp Pulse Resp BP Pulse Ox 98.0 F 75 19 122/76 100 12/27/20 00:00 12/27/20 00:00 12/27/20 00:00 12/27/20 00:00 12/27/20 00:00 General: Alert, In no apparent distress, Oriented x3, Cooperative HEENT: Atraumatic Neck: Supple Respiratory: Clear to auscultation bilaterally, Normal air movement Cardiovascular: Normal pulses, Regular rate/rhythm Gastrointestinal: Normal bowel sounds, No tenderness, No masses, No rebound, No guarding Musculoskeletal: No erythema, No tenderness, No warmth Integumentary: No tenderness/swelling Neurological: Normal speech, Normal strength at 5/5 x4 extr, Normal tone, Normal affect Laboratory Data at Discharge: WBC 9.40 K/uL (4.3-10.9) 12/25/20 05:45 Hgb 11.0 g/dL (13.6-17.9) L 12/25/20 05:45 Hct 33.8 % (39.6-49.0) L 12/25/20 05:45 Plt Count 243 K/uL (152-406) 12/25/20 05:45 PT 15.7 SECONDS (9.5-12.5) H 12/24/20 17:08 INR 1.36 12/24/20 17:08 Sodium 138 mmol/L (136-145) 12/27/20 05:10 Potassium 3.6 mmol/L (3.5-5.1) 12/27/20 05:10 BUN 50 mg/dL (7-18) H 12/27/20 05:10 Creatinine 3.74 mg/dL (0.55-1.3) H 12/27/20 05:10 Glucose 97 mg/dL (74-106) 12/27/20 05:10 Uric Acid 9.9 mg/dL (3.5-7.2) H 12/26/20 06:01 Phosphorus 4.1 mg/dL (2.5-4.9) 12/27/20 05:10 Magnesium 2.3 mg/dL (1.8-2.4) 12/27/20 05:10 Total Bilirubin 0.9 mg/dL (0.2-1.0) 12/24/20 17:08 AST 43 U/L (15-37) H 12/24/20 17:08 ALT 65 U/L (12-78) 12/24/20 17:08 Alkaline Phosphatase 71 U/L (45-117) 12/24/20 17:08 Troponin I 0.05 ng/mL (0.0-0.045) H 12/25/20 00:51 Home Medications: traMADol HCL [Ultram*] 1 tab PO Q6HP PRN 12/24/20 Amlodipine [Norvasc*] 10 mg PO DAILY #30 tab 12/26/20 Isosorbide Mononitrate [Isosorbide Mononitrate ER] 30 mg PO DAILY #30 tab.er.24h 12/26/20 carvediloL [Coreg*] 25 mg PO BIDWM #60 tab 12/26/20 Apixaban [Eliquis] 2.5 mg PO BID #60 tablet 12/27/20 Hydralazine HCl 75 mg PO BID #90 tablet 12/27/20 New Medications: carvediloL [Coreg*] 25 mg PO BIDWM #60 tab Apixaban [Eliquis] 2.5 mg PO BID #60 tablet Hydralazine HCl 75 mg PO BID #90 tablet Isosorbide Mononitrate [Isosorbide Mononitrate ER] 30 mg PO DAILY #30 tab.er.24h Amlodipine [Norvasc*] 10 mg PO DAILY #30 tab Physician Discharge Instructions: Patient presented with shortness of breath secondary to acute on chronic systolic CHF with bilateral small pleural effusions noted. Patient with prior echo done June 2017 showing ejection fraction around 20 to 25%. Patient was admitted for treatment. Patient also presented with hypertensive urgency and episode of atrial fibrillation which resolved with medication. Patient has been noncompliant with medication and follow-up. Patient was admitted for treatment. Patient was seen and evaluated by nephrology and cardiology. Repeat echocardiogram shows improvement of ejection fraction to 35 to 40 %. Patient was given IV Lasix with improvement. Chest x-ray shows improvement. Patient not requiring any oxygen. Patient back to normal sinus rhythm. Cardiology recommends no chronic anticoagulation therapy. A. fib likely paroxysmal. Cardiology recommends no further cardiac intervention at this time. Blood pressure medications were adjusted for better control. At discharge patient will continue with renal diet. He is to monitor his weight daily. If his weight increases by more than 5 pounds he is to contact his PCP or nephrology for further adjustment in medication. At discharge patient will continue with Imdur 30 mg daily. Patient is not a candidate for Entresto at this time as recommended by cardiology. Patient will need to follow-up with cardiology in 1 to 2 weeks to follow-up hospitalization. Patient plans to establish care with a local PCP to monitor his chronic conditions. For his hypertension, medications were adjusted for better control. Blood pressure is now improved. At discharge, the patient will continue with Norvasc 10 mg daily, carvedilol 25 mg 1 pill twice daily, and hydralazine 75 mg 1 pill twice daily. Recommend to monitor his blood pressures daily. Recommend to maintain blood pressure less than 130/80. If his blood pressures remain elevated greater than 140/90 he is to contact his PCP for further recommendation. Recommend follow-up with cardiology in 1 to 2 weeks to follow- up his hospitalization. Patient plans to establish care with a local physician to continue his medical regimen and close monitoring of his condition. Education on CHF, hypertension provided. Patient with acute on chronic renal disease stage IV with presumed hypertensive nephrosclerosis. Patient being evaluated for primary hyperaldosteronism. Lab pending. This can be followed up with nephrology as an outpatient. Patient was seen by nephrology. Recommend no further use of nonsteroidal anti- inflammatories. Future medications would to be renally dosed. Renal function overall stable. At discharge patient will follow up with nephrology in 1 to 2 weeks. Recommend to recheck labBMP in 1 to 2 weeks to monitor his progress. Patient had episode of atrial fibrillation. This appeared new. Cardiology recommends to start chronic anticoagulation therapy Eliquis 2.5 mg 1 pill twice daily. Patient will continue with this medication. Patient currently on carvedilol to help with rate control. Recommend follow-up with cardiology in 1 to 2 weeks. Patient with history of noncompliance with his medication and follow-up. Patient plans to be more compliant. Patient will establish care with a local PCP to continue his care. Diet: AHA Activity: Ad semaj Followup: NONE,NONE [Primary Care Provider] - Time spent managing pt's care (in minutes): 55
[2020-12-27 09:04] VITALS: BP 156/102; TEMP 97.9
[2020-12-27] MEDS: HEPARIN 5000 UNIT/ML 1 ML VIAL SQ SCH (09:10)
[2020-12-27] MEDS: carvediloL 25 MG TAB PO SCH (09:11)
[2020-12-27] MEDS: ASPIRIN EC 81 MG TAB PO SCH (09:11)
[2020-12-27] MEDS: AMLODIPINE 10 MG TAB PO SCH (09:11)
[2020-12-27] MEDS: ISOSORBIDE MONO SR 30 MG TAB PO SCH (09:12)
[2020-12-27] MEDS: HYDRALAZINE HCL 25 MG TABLET PO SCH (09:12)
[2020-12-27 10:20] VITALS: O2SAT 96
--- NOTE | 2020-12-27 21:59 | PN ---
Date of Progress Note: 12/27/2020 Chief Complaint: Acute kidney injury secondary to uncontrolled hypertension. Subjective: Serum creatinine level was trending up and Lasix was stopped. The patient was advised l iberal p.o. fluid intake. Plan is to avoid nonsteroidal antiinflammatory medication and ARB medicati on. The patient has underlying chronic kidney stage 4 due to hypertensive nephrosclerosis. The patient d eveloped acute on chronic congestive heart failure. He has history of diastolic congestive heart geronimo lure. He was seen by loan consultant for cardiorenal syndrome. Blood pressure overall was well control led, although DEEPA inhibitor was stopped due to acute kidney injury. The patient was found to have hy pokalemia and alkalosis, which was likely secondary to diuretic effect, although a workup was initiat ed for primary hyperaldosteronism and PAPRA results are pending. Review of Systems: Denies fever or chills. Physical Examination: Lungs: Clear to auscultation bilaterally. Heart: S1, S2. Abdomen: Soft, benign. Extremities: No edema. Impression And Plan: 1.Acute kidney injury. Monitor renal panel. Monitor potassium level. The patient received replace ment for hypokalemia. 2.Acute kidney injury, multifactorial. The patient had acute cardiorenal syndrome. There is underl dilma stage 4 chronic kidney disease secondary to benign nephrosclerosis. 3.Hypertension. The patient will continue hydralazine and dose was recently adjusted. 4.The patient has chronic kidney disease secondary to hypertensive nephrosclerosis. Monitor intact PTH. 5.Hypokalemia. Monitor magnesium level and renal panel. Awaiting results from workup to rule out an evidence of primary hyperaldosteronism. EB/MODL Voice ID: [id number] Report ID: [id number]
[2020-12-29 11:28] LABS: Vitamin D 1,25-Dihydroxy Total 66 pg/mL (18-72); Vitamin D,1,25-OH2, D2 <8 pg/mL
== END 2020-12-27 10:44 | disposition home or self-care (01) | DRG 291 ==
LOC: ER 15:21 → ERHOLD 20:12 → 2ND 20:15
PROVIDERS: ADMIT Family Medicine; ATTEND Family Medicine
DX: I13.0 Hypertensive heart and chronic kidney disease with heart failure and stage 1 through stage 4 chronic kidney disease, or unspecified chronic kidney disease (principal); I50.23 Acute on chronic systolic (congestive) heart failure; N18.4 Chronic kidney disease, stage 4 (severe); N17.9 Acute kidney failure, unspecified; E27.40 Unspecified adrenocortical insufficiency; Z91.14 Patient's other noncompliance with medication regimen; I16.0 Hypertensive urgency; I48.0 Paroxysmal atrial fibrillation; E87.6 Hypokalemia; Z20.822 Contact with and (suspected) exposure to COVID-19
CPT/HCPCS: 36415; 71045; 71046; 74176; 76377; 76770; 80048; 80069; 80076; 81001; 82088; 82570; 82652; 83735; 83880; 83970; 84156; 84244; 84300; 84443; 84484; 84550; 85025; 85610; 93005; 93306; 96372; 96374; 96375; 99285; J0360; J1644; J1940; J2405; U0003